=== PATIENT | female | born 1985 | race Hispanic/Latino ===

== ENCOUNTER 2019-03-15 09:13 | Inpatient (IN) | payer BC ==
[2019-03-15 11:12] VITALS: BMI 38.0
[2019-03-15 12:12] LABS: BASO % 0.2 % (0.0-2.0); EOS # 0.2 K/uL (0.0-0.7); EOS % 2.1 % (0.0-4.0); HEMOGLOBIN 10.9 g/dL (12.0-16.0); LYMPH # 1.3 K/uL (1.0-4.3); LYMPH % 11.7 % (20.0-40.0); MEAN CELL VOLUME 86.1 fl (81.0-99.0); MEAN CORPUSCULAR HEMOGLOBIN 28.8 pg (27.0-31.0); MEAN CORPUSCULAR HGB CONC 33.5 g/dL (33.0-37.0); MEAN PLATELET VOLUME 7.2 fl (7.2-11.7); MONO # 0.5 K/uL (0.0-0.8); MONO % 4.3 % (0.0-10.0); NEUT # 8.9 K/uL (1.8-7.0); NEUT % 81.7 % (50.0-75.0); NRBC % 0.1 % (0.0-0.0); RBC 3.8 Mil/uL (3.80-5.20); RED CELL DISTRIBUTION WIDTH 16.2 % (11.5-14.5); WHITE BLOOD COUNT 10.9 K/uL (4.8-10.8)
[2019-03-15] MEDS ORDERED: Lactated Ringer's 1,000 ML IV ONE ×3 (12:24→13:42)
[2019-03-15] MEDS ORDERED: Oxytocin 30 UNIT in NS 500 ml 30 UNITS/500 ML BAG IV ONE ×3 (12:24→22:43)
--- NOTE | 2019-03-15 12:35 | OBADHP ---
Datetime: 03/15/2019 10:51 Admit Comment, IP Provider: 33-year-old at 39.3 EGA (dated on LMP) presents for scheduled in duction of labor. Pt denies vaginal bleeding, loss of fluid and contractions. Endorses good mov ement. No complications with thus far. First delivered full term with no com plications (8lbs 8 oz). Pt of Dr Ricketts. Denies headache, change in vision, new-onset edema, nausea, v omiting, fever and diarrhea. PMD: Dr Ricketts OBHx: 2016 FT, no complications, 8lbs 8 oz PMH: denies Meds: PNV Allergies: Shellfish/Iodine Family Hx: denies Surgical Hx: denies Social: denies etoh, tobacco, and illicit drug use ROS: all other systems reviewed and negative unless otherwisae noted in HPI. PE: Gen: NAD, comfortable Resp: no respiratory distress CV: RRR Abd: no tenderness to palpation Skin: no rash, no jaundice A+P: 33-year-old at 39.3 EGA (dated on LMP) presents for scheduled induction of labor. -Admit to L and D -Inititate IOL protocol -Continuous EFM Case discussed with Dr Narayan Addendum by Dr. Ricketts: I have evaluated the patient independently and I agree with the above Pelvic Type - PN: Not Done Extremities - PN: Normal Abdomen - PN: Normal Back - PN: Normal Breast - PN: Normal Lungs - PN: Normal Heart - PN: Normal Thyroid - PN: Not Done Neurologic - PN: Normal HEENT - PN: Normal FHR - Baseline A Provider: 150 Vital Signs Provider: Reviewed; Within Normal Limits IP Chief Complaint: Scheduled induction of labor NICHD Variability Prov Fetus A: Moderate 6-25bpm NICHD Accel Fetus A IP Provider: [id number] NICHD Decel Fetus A IP Provider: None Genitourinary Exam: Not Done DTRs - PN: Normal EGA AdmitDate IP: 39.3 IP Adm Impression: Term, intrauterine IP Admit Plan: Admit to unit; Initiate labor induction protocol
--- NOTE | 2019-03-15 12:47 | OBPN ---
Datetime: 03/15/2019 12:00 IP Informed Consent Obtain: Vaginal Delivery IP Procedures: Artificial ROM IP Progress Plan: Continue present management; Induction Membranes, Provider: Ruptured Amniotic Fluid Color, Provider: Bloody Contraction Comments Provider: Irregular FHR - Baseline A Provider: 150 Presentation-Admit: Vertex IP Progress Note Comment: Patient evaluated, comfortable. VE = 2/50/-3, AROM, clear scant fluid FHR = 150 mod eduardo, +accels, no decels TOCO = ctxning q irregularly A/P 1. Patient admitted for elective 39 week induction, now 2cm dilated and ruptured 2. Will start Pitocin for induction as well 3. CEFM and TOCO 4. Re-evaluate as needed Vital Signs Provider: Reviewed; Within Normal Limits NICHD Accel Fetus A IP Provider: [id number] FHR Category Provider Fetus A: Category I NICHD Variability Prov Fetus A: Moderate 6-25bpm Dilatation, Provider: 2 Effacement, Provider: 50 Station, Provider: -3 NICHD Decel Fetus A IP Provider: None
[2019-03-15] MEDS ORDERED: Fentanyl/Bupivacaine HCl 250 ML EPI ONE (17:06)
[2019-03-15] MEDS ORDERED: Phenylephrine 10 mg/ml Inj ONE (17:52)
[2019-03-15] MEDS ORDERED: Lactated Ringer's 1,000 ML IV SCH (18:15)
--- NOTE | 2019-03-15 20:54 | OBPN ---
Datetime: 03/15/2019 20:49 IP Progress Impression: Normal progression of labor IP Informed Consent Obtain: Vaginal Delivery IP Procedures: Sterile Vag Exam IP Progress Plan: Continue present management; Augmentation Membranes, Provider: Ruptured Contraction Comments Provider: q 3-4 mins FHR - Baseline A Provider: 150 IP Progress Note Comment: Patient evaluated, comfortable with epidural, feeling some pressure VE = 5/60/-1 FHR = 150 mod eduardo, +accels, early decels TOCO = ctxning q 3-4 mins, Pitocin @ 10 mu/min A/P 1. Patient progressing slowly in labor, will continue augmentation with Pitocin 2. CEFM and TOCO 3. Re-evaluate as needed Vital Signs Provider: Reviewed; Within Normal Limits NICHD Accel Fetus A IP Provider: [id number] NICHD Variability Prov Fetus A: Moderate 6-25bpm Dilatation, Provider: 5 Effacement, Provider: 60 Station, Provider: -1 NICHD Decel Fetus A IP Provider: Early
--- NOTE | 2019-03-15 22:27 | OBPN ---
Datetime: 03/15/2019 22:21 IP Progress Impression: Normal progression of labor IP Informed Consent Obtain: Vaginal Delivery IP Procedures: Sterile Vag Exam IP Progress Plan: Continue present management Contraction Comments Provider: q 2 mins FHR - Baseline A Provider: 145 IP Progress Note Comment: Patient feels increased pressure VE = 8-9/100/0 FHR = 145 mod eduardo, +accels, +early decelerations TOCO = ctnxing q 2 mins, Pitocin @ 16 mu/min A/P 1. Patient progressing well in labor, will continue Pitocin for augmentation 2. CEFM and TOCO 3. Re-evaluate as needed Vital Signs Provider: Reviewed; Within Normal Limits NICHD Accel Fetus A IP Provider: [id number] NICHD Variability Prov Fetus A: Moderate 6-25bpm Dilatation, Provider: 8-9 Effacement, Provider: 100 Station, Provider: 0 NICHD Decel Fetus A IP Provider: Early
[2019-03-15] MEDS ORDERED: Lidocaine 1% Inj (20ml) ONE (22:32)
[2019-03-15] MEDS ORDERED: OXYTOCIN/0.9 % NS 20 UNIT/1,000 ML BAG IV SCH (22:45)
[2019-03-16] MEDS ORDERED: Oxycodone/Acetaminophen 5/325 mg Tab PO PRN ×2 (00:21→02:36)
[2019-03-16] MEDS ORDERED: Benzocaine/Menthol SPRAY TOP PRN ×2 (00:21→02:36)
--- NOTE | 2019-03-16 00:21 | OBDS ---
DELIVERY PERSONNEL Delivery Doctor: Yvette Ricketts MD Anesthesiologist: Kwaku Solano MD MATERNAL INFORMATION Delivery Anesthesia: Epidural Medications in Delivery: Pitocin Estimated Blood Loss (ml): 100 Placenta Cultured: No Maternal Complications: None Provider Comments: of live male infant over intact perineum in ISMAEL presentation, followed by gayla and rest of atraumatically, loose nuchal cord, mouth and nose suctioned on mother's ch est, cord clamped and cut, cord blood obtained, placenta delivered spontaneously, fundus firm, EBL = 100mL, no lacerations for repair, pt tolerated procedure well LABOR SUMMARY EDC: 03/19/2019 00:00 No. Babies in Womb: 1 Attempted: No Labor Anesthesia: Epidural LABOR INFORMATION Oxytocin: Augmentation Group B Beta Strep: Negative Antibiotics # of Doses: 0 Antibiotics Time of Last Dose: n/a MEMBRANES Membranes Rupture Method: Artificial Rupture of Membranes: 03/16/2019 12:16 Length of Rupture (hrs): -12.33 Amniotic Fluid Color: Clear Amniotic Fluid Amount: Small Amniotic Fluid Odor: None STAGES OF LABOR Stage 3 hrs: 0 Stage 3 min: 3 VAGINAL DELIVERY Episiotomy: None Laceration Extension: N/A Laceration Type: None Laceration Repair: Not Applicable Initial Vag Sponge Count: 15 Final Vag Sponge Count: 15 Initial Vag Sharps Count: 0 Final Vag Sharps Count: 0 Sponge Count Correct: Yes Sharps Count Correct: N/A Count Comment: count correct BABY A INFORMATION Delivery Date/Time: 03/15/2019 23:56 Method of Delivery: Vaginal Born in Route : No : N/A Forceps: N/A Vacuum Extraction: N/A Shoulder Dystocia : No SHOULDER DYSTOCIA BABY A Infant Delivery Date/Time: 03/15/2019 23:56 PRESENTATION/POSITION BABY A Presentation: Cephalic PLACENTA INFORMATION BABY A Placenta Delivery Time : 03/15/2019 23:59 Placenta Method of Delivery: Spontaneous Placenta Status: Delivered SCORES BABY A Heart Rate 1 min: >100 bpm Resp Effort 1 min: Good Cry Reflex Irritability 1 min: Cough or Sneeze or Pulls Away Muscle Tone 1 min: Active Motion Color 1 min: Body Affton, Extremities Blue Resuscitation Effort 1 min: Tactile Stimulation SCORE 1 MIN: 9 Heart Rate 5 min: >100 bpm Resp Effort 5 min: Good Cry Reflex Irritability 5 min: Cough or Sneeze or Pulls Away Muscle Tone 5 min: Active Motion Color 5 min: Body Affton, Extremities Blue Resuscitation Effort 5 min: N/A SCORE 5 MIN: 9 INFANT INFORMATION BABY A Gestational Age at Delivery: 39.4 Gestational Status: Term Infant Outcome : Liveborn Condition : Stable Sex: Male IDENTIFICATION/MEDS BABY A ID Band Location: Left Leg; Left Arm CORD INFORMATION BABY A No. Cord Vessels: 3 Nuchal Cord : Around Neck x1, Loose Cord Blood Taken: Yes Infant Suction: Mouth; Nose ASSESSMENT BABY A Infant Complications: None Physical Findings at Delivery: Within Normal Limits Infant Respirations: Appears Normal Director Orange/ALS Called : No
--- NOTE | 2019-03-16 07:34 | OBPPN ---
Datetime: 03/16/2019 07:29 PP Pain Prov: Within normal limits PP Abdomen/Uterus Prov: Normal PP Lochia Prov: Normal PP Progress Prov: Normal PP Impression Prov: Normal progression PP Plan Prov: Continue present management PP Progress Note Prov: PPD 1 s/p , doing well, breast and bottle feeding Continue current care Vital Signs Provider PP: Reviewed
[2019-03-16 08:29] LABS: HEMOGLOBIN 10.6 g/dL (12.0-16.0); MEAN CELL VOLUME 86.4 fl (81.0-99.0); MEAN CORPUSCULAR HEMOGLOBIN 28.2 pg (27.0-31.0); MEAN CORPUSCULAR HGB CONC 32.6 g/dL (33.0-37.0); RBC 3.75 Mil/uL (3.80-5.20); RED CELL DISTRIBUTION WIDTH 16.4 % (11.5-14.5); WHITE BLOOD COUNT 17.3 K/uL (4.8-10.8)
[2019-03-16] MEDS: Multivitamin With Minerals Tab PO SCH (08:29)
[2019-03-16] MEDS ORDERED: Multivitamin With Minerals Tab PO SCH (09:00)
[2019-03-17] MEDS: Multivitamin With Minerals Tab PO SCH (08:11)
--- NOTE | 2019-03-17 09:23 | OBDCSUM ---
Datetime: 03/17/2019 08:45 Discharged to, Provider: Home Follow up at, Provider: Dr. Ricketts Disch Instr Activity: Normal activity; May be up to bathroom; May be up for meals; May Shower Disch Instr Diet: Regular Discharge Diagnosis, Provider: Term Delivered Discharge Time: 03/17/2019 08:45 Follow up in weeks, Provider: 6 weeks Disch Referrals: None Disch Activity Restrictions: No exercising; No lifting; No driving; Minimize stair-climbing; No sexu al activity; Nothing in vagina - [place], tampons, douche
[2019-03-17 18:14] VITALS: BP 136/77; PULSE 98; RESP 20; TEMP 98.6; O2SAT 97
== END 2019-03-17 11:57 | disposition home or self-care (01) | DRG 807 ==
LOC: H.L&D 11:13 → H.OB/GYN 03-16 07:47
PROVIDERS: ADMIT Obstetrics & Gynecology; ATTEND Obstetrics & Gynecology
PROC: 10E0XZZ Delivery of Products of Conception, External Approach (ICD-10-PCS; principal; 2019-03-15)
PROC: 4A1HXCZ Monitoring of Products of Conception, Cardiac Rate, External Approach (ICD-10-PCS; 2019-03-15)
DX: O69.81X0 Labor and delivery complicated by cord around neck, without compression, not applicable or unspecified (principal); Z37.0 Single live birth; O36.63X0 Maternal care for excessive fetal growth, third trimester, not applicable or unspecified; Z3A.39 39 weeks gestation of pregnancy